=== PATIENT | female | born 1945 | race Caucasian/White ===

== ENCOUNTER 2016-10-19 12:39 | Emergency (ER) | payer MEDICARE, BC ==
[2016-10-19] MEDS ORDERED: Aspirin 81 MG Tab.Chew PO ONE (12:44)
[2016-10-19] MEDS ORDERED: Sodium Chloride 0.9% 10 ML Syringe FLUSH PRN (13:13)
--- NOTE | 2016-10-19 13:50 | CR ---
INDICATION: Chest pain. CHEST: An AP upright view of the chest was obtained and revealed evidence of exogenous obesity. The heart is normal in size and shape. The aorta is minimally tortuous. Overlying EKG leads are noted. An active infiltrate or effusion was not identified. IMPRESSION: No acute process. MTDD
[2016-10-19 13:53] VITALS: BP 151/64
--- NOTE | 2016-10-20 10:47 | ER ---
DATE SEEN: 10/19/2016 TIME SEEN: The patient was seen at 1355 hours. CHIEF COMPLAINT: Chest pain. HISTORY OF PRESENT ILLNESS: This 71-year-old woman, with chronic obstructive lung disease, status post stent placement right coronary artery, and previous carotid circulation compromise, ICA 16-49% stenosis, and left vertebral artery high velocity change, which required MRI studies, but I am not sure if she has gotten that done as of documented 06/06/2015; hypertensive diabetic comes in with onset of chest pain at 0700 hours, which is transverse, left to right, mid chest approximately T5 through T7 level and with slight radiation to her back. No associated diaphoresis, nausea, diarrhea, shortness of breath, abdominal pain, nausea, lightheadedness, presyncope, syncope, palpitations, pedal edema, history of long distance travel, history of lying in bed for more than 3 days, or previous surgery in the last 4 weeks. The patient is not on warfarin, and because of her stent, she had been on clopidogrel. No longer she is on clopidogrel, after she had the stent placed, it was stopped after approximately 1 1/2 months. The patient usually walks 2 miles a day. 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 PAST MEDICAL HISTORY: Hypertension; COPD; stent (right side); diabetes, on hyperglycemic medicines; no CVA; no renal stones. PAST SURGICAL HISTORY: She is edentulous and cardiac stent placed. 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 CURRENT MEDICATION: 1. Metformin b.i.d. 2. Triamcinolone ointment. 3. Hubbard oils. 4. Nitrostat p.r.n. 5. Multivitamins. 6. Metoprolol succinate 25 mg daily. 7. Lisinopril daily. 8. Ketotifen ophthalmic drops. 9. She is no longer taking clopidogrel. 10.Citalopram daily. 11.Vitamin D. 12.Refresh Optive eye drops for dry eyes. 13.Vitamin C. 14.Albuterol as needed. FAMILY HISTORY: Mother age 67 of coronary artery disease. Father at age 81 of atherosclerotic artery disease. One brother is 76, has kidney transplant. REVIEW OF SYSTEMS: HEENT: Negative. She is edentulous. CARDIORESPIRATORY: As noted above. GI: Without any gastrointestinal symptoms. No GERD. GENERAL: She is overweight. She is 175 pounds, short stature, 1.59 m. BMI 31. : No problems with passing urine, occasional incontinence with stress or coughing. MUSCULOSKELETAL: Negative. PHYSICAL EXAMINATION: VITAL SIGNS: Blood pressure 190/73, heart rate 72 and regular, respirations 12, oxygen saturation 98%. GENERAL/CONSTITUTIONAL: The patient is alert and in no acute distress. Has mild discomfort presently; notes it is 3/10 in intensity discomfort, nonradiating. HEENT: PERRLA intact. Eyegrounds normal appearance, moderate retinal artery narrowing. Pharynx without abnormality. Edentulous. Has dentures in place. NECK: No bruits. No thyromegaly. No masses. LUNGS: Clear to auscultation without rales, rhonchi, or wheezes. HEART: S1, S2. No murmur. No irregular rate or rhythm. ABDOMEN: Soft. No guarding. No abdominal discomfort. Increased abdominal girth. EXTREMITIES: Lower extremities without edema. ABDOMEN: Nontender, no guarding, no rebound. Bowel sounds normal. No masses noted. NEURO: Deep tendon reflexes hypoactive in upper and lower extremities. Cranial nerves 2 through 12 intact. Oriented x3. MUSCULOSKELETAL: Negative. PSYCHIATRIC: Negative. DIAGNOSTIC DATA: EKG sinus rhythm, borderline high normal MO interval at 1.99 milliseconds, QT corrected [address] elevation. T-wave inversion in V6 and aVL. No ST-T wave elevation. LABORATORY FINDINGS: White count 5,100, PMNs 64, lymphocytes 26, monos 10, hemoglobin 14.7, platelets 270,000. D-dimer normal 151. Complete metabolic panel normal, except for glucose 139, sodium 136, potassium 4.3, chloride 100, BUN 12, CO2 26, creatinine 0.1, GFR greater than 60, troponin less than 0.01. ASSESSMENT: 1. Nonspecific chest pain, etiology indeterminate. 2. Probably not coronary because the patient had chest pain earlier in the day without troponin changes. Still could be heart mediated. Differential would include shingles, sternal costochondritis, pulmonary embolus, pneumonia, pneumothorax, gastritis, or gastric ulcer disease. OTHER DIAGNOSES: Obesity; chronic obstructive pulmonary disease; edentulous; squamous cell carcinoma, resected left arm; hypertension; and decreased circulation of coronary arteries. PLAN: 1. The patient is dismissed to follow up with doctor in a week. If she has recurrent chest pain, return to the ED. Otherwise, if recurrent chest pain without enzyme elevation, may need a stress test. 2. Continue walking 2 miles a day. /[id number] SHANITA/KANA
== END 2016-10-19 14:02 | disposition home or self-care (01) ==
LOC: FB.ED 12:39
DX: R07.9 Chest pain, unspecified (principal); E66.9 Obesity, unspecified; J44.9 Chronic obstructive pulmonary disease, unspecified; I10 Essential (primary) hypertension; E11.9 Type 2 diabetes mellitus without complications; Z98.890 Other specified postprocedural states
CPT/HCPCS: 36415; 71010; 80053; 82962; 84484; 85025; 85379; 93005; 99285; A9270; J7050; 99284